=== PATIENT | female | born 1960 ===

== ENCOUNTER 2024-11-07 17:15 | Emergency (ER) | payer OTHER ==
[~2024-11-07] VITALS: Ht 165.1 cm; Wt 89.4 kg
[~2024-11-07 17:15] MED LIST: ALBU90OI INH; CLON2 PO; DICY20 PO; HYDACE5 PO; IBUHYD PO; KETO10 PO; NEOPOLHCSU OT; PROM25 PO; SULTRIDS PO
[2024-11-07] MEDS ORDERED: Acetaminophen 500 MG Tab PO ONE (18:50)
== END 2024-11-07 20:00 | disposition home or self-care (01) ==
LOC: ER 17:15
DX: S00.83XA Contusion of other part of head, initial encounter (principal); Z79.01 Long term (current) use of anticoagulants; I50.9 Heart failure, unspecified; V89.2XXA Person injured in unspecified motor-vehicle accident, traffic, initial encounter
CPT/HCPCS: 49180; 70450; 72125; 99284-25; A9270